=== PATIENT | female | born 1990 | race Caucasian/White ===

== ENCOUNTER → 2019-01-15 | Outpatient (CLI) | payer MEDICAID, SELFPAY ==
[2019-01-14 11:21] VITALS: BMI 16.2
--- NOTE | 2019-01-15 13:27 | CT_ITS ---
STUDY: CTA CHEST REASON FOR EXAM: Female, 28 years old. Hemoptysis. Patient has a history of breast carcinoma with bilateral mastectomy and chemotherapy and radiation therapy. RADIATION DOSAGE (If Supplied By Facility): CTDIvol = ( 5.71 ) mGy, DLP = ( 217.27 ) mGycm TECHNIQUE: The examination was performed with the intravenous administration of IV Isovue 370 60. Post-processing of the angiographic images was performed, with multiplanar reformation and 3D reconstruction. Individualized dose optimization techniques were used for this CT. COMPARISON: None. FINDINGS: A left-sided portacatheter is seen. The tip is in the superior vena cava. The patient is status post bilateral mastectomy and bilateral axillary node dissection. There is a 1.1 cm x 2.95 cm irregular pleural-based nodular density in the posterior lateral aspect of the right upper lobe. 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 Smaller areas of the groundglass appearance are also seen in both upper lobes. Normal enhancement of the main pulmonary artery and right and left pulmonary arteries. Normal enhancement of the bilateral peripheral pulmonary arteries. There is no demonstrated pulmonary embolism. Normal thoracic aorta and visualized great vessels. There is no demonstrated aortic dissection. Normal heart and pericardium. Normal mediastinum. Normal hilar regions. Normal visualized trachea and bronchi. The lungs are well expanded. Normal pulmonary parenchyma. Normal pleura. Normal chest wall structures. Normal osseous structures. Diffuse fatty infiltration of the liver. CT/CTA Chest W/WO Contrast IMPRESSION: Findings as described in the upper lobes slightly worse on the right side. These most likely represent post radiation changes. 6 month follow-up examination is recommended. Electronically Signed: Boris Santizo, at 14:17 EST , Service support ,
== END | disposition home or self-care (01) ==
LOC: CT 13:25
PROVIDERS: Referring Provider Internal Medicine Hematology & Oncology; Visit Provider Internal Medicine Hematology & Oncology
DX: C50.919 Malignant neoplasm of unspecified site of unspecified female breast (principal); C77.9 Secondary and unspecified malignant neoplasm of lymph node, unspecified; R04.2 Hemoptysis
CPT/HCPCS: 71275; Q9967; A4216